=== PATIENT | female | born 1965 | race Caucasian/White ===

== ENCOUNTER 2017-08-06 16:02 | Emergency (ER) | payer SELFPAY ==
[~2017-08-06] VITALS: Ht 170.2 cm; Wt 110.0 kg
[~2017-08-06 16:02] MED LIST: CIPR500T4 PO; TRAM50 PO
[2017-08-06 16:09] VITALS: BP 127/59; PULSE 90; RESP 16; TEMP 98.6; O2SAT 97
--- NOTE | 2017-08-06 16:33 | PD ---
HPI Chief Complaint: Musculoskeletal Complaint Time Seen by Provider: 16:26 Travel History International Travel<30 days: No Contact w/Intl Traveler<30days: No Traveled to known affect area: No History of Present Illness HPI 51yo F with no significant PMH presents to the ED with c/o pain in back of right knee since yesterday. Pt denies any trauma, fall, fever, chest pain, sob , n/v, abdominal pain, focal weakness or numbness. Pt went to urgent care today and was sent here for US since they dont have US. PFSH Past Medical History Blood Disorders: No Depression: Yes Cancer: Yes (SKIN CANCER--BASAL CELL CARCINOMA) Cardiovascular Problems: No Chemotherapy: No Diabetes: No Diminished Hearing: No Endocrine: No Glaucoma: No Genitourinary: Yes Hepatitis: No Hiatal Hernia: No Hypertension: No Immune Disorder: No Kidney Stones: Yes (NEW ONSET) Musculoskeletal: No Neurologic: No Psychiatric: Yes Reproductive: No Respiratory: No Radiation Therapy: No Thyroid Disease: No ?: Not Past Surgical History Abdominal Surgery: No Cardiac Surgery: No Ear Surgery: No Endocrine Surgery: No Eye Surgery: No Genitourinary Surgery: No Gynecologic Surgery: Yes (HYSTERECTOMY) Hysterectomy: Yes Oral Surgery: No Pacemaker: No Thoracic Surgery: No Other Surgery: Yes (BASAL CELL CARCINOMA REMOVED 12/05/05) Social History Alcohol Use: No Tobacco Use: No Substance Use: No Allergies-Medications (Allergen,Severity, Reaction): Coded Allergies: No Known Allergies (Verified Adverse Reaction, Unknown, 08/06/17) Reported Meds & Prescriptions Reported Meds & Active Scripts Active No Active Prescriptions or Reported Medications Review of Systems Except as stated in HPI: all other systems reviewed are Neg Physical Exam Narrative GENERAL: 51yo F in mild distress. SKIN: Focused skin assessment warm/dry. HEAD: Atraumatic. Normocephalic. EYES: Pupils equal and round. No scleral icterus. No injection or drainage. ENT: No nasal bleeding or discharge. Mucous membranes pink and moist. NECK: Trachea midline. No JVD. CARDIOVASCULAR: Regular rate and rhythm. No murmur appreciated. RESPIRATORY: No accessory muscle use. Clear to auscultation. Breath sounds equal bilaterally. GASTROINTESTINAL: Abdomen soft, non-tender, nondistended. Hepatic and splenic margins not palpable. MUSCULOSKELETAL: RLE: FROM in right knee. No erythema, edema or ttp right knee joint. +TTP posterior lateral popliteal region. Sensation intact. Distal pulses intact. NEUROLOGICAL: Awake and alert. No obvious cranial nerve deficits. Motor grossly within normal limits. Normal speech. PSYCHIATRIC: Appropriate mood and affect; insight and judgment normal. Data Data Last Documented VS Vital Signs Date Time Temp Pulse Resp B/P (MAP) Pulse Ox O2 Delivery O2 Flow Rate FiO2 08/06/17 16:09 98.6 90 16 127/59 (81) 97 Orders Orders Us Leg Venous Doppler (08/06/17 ) Ketorolac Inj (Toradol Inj) (08/06/17 16:45) MDM Medical Decision Making Medical Screen Exam Complete: Yes Emergency Medical Condition: Yes Differential Diagnosis Musculoskeletal pain vs. Chow cyst vs. DVT Narrative Course 51yo well appearing female here with pain in right posterior knee region since yesterday. Pt has good range of motion in right knee with no pain in knee joint. US right lower extremity showed no DVT. Pt given toradol and reevaluated at bedside. Said pain has improved. Return precautions given. Diagnosis Primary Impression: Right leg pain Patient Instructions: General Instructions Departure Forms: Tests/Procedures Additional Instructions: Please follow up with [facility] as outpatient. Return to the ED if symptoms worsen. Med/Other Pt SpecificInfo: Prescription(s) given Scripts Ibuprofen (Ibuprofen) 600 Mg Tab 600 MG PO Q8HR Y for PAIN, #20 TAB 0 Refills Prov: NewberryArielle 08/06/17 Disposition: 01 DISCHARGE HOME Condition: Stable NewberryArielle DO Aug 06, 2017 16:33
[2017-08-06] MEDS ORDERED: KETOROLAC TROMETHAMINE 60 MG/2 ML (IM) VIAL IM ONE (16:45)
--- NOTE | 2017-08-06 17:56 | RADRPT ---
EXAM DATE/TIME: 08/06/2017 17:28 [facility] COMPARISON: No previous studies available for comparison. INDICATIONS : Right leg swelling. MEDICAL HISTORY : Glasses. Kidney stones. Urinary tract infection. Depression. Skin cancer. SURGICAL HISTORY : Hysterectomy. Right knee surgery. Basal cell carcinoma removed. ENCOUNTER: Initial ACUITY: 2 day PAIN SCORE: 3/10 LOCATION: Right leg. TECHNIQUE: Venous ultrasound of the leg was performed from the inguinal ligament to the proximal calf. Real-sara e, color Doppler and spectral tracing, compression and augmentation techniques were used. FINDINGS: There is normal compressibility of the deep venous system from the inguinal region to the proximal ca lf. No echogenic clot is seen in the lumen of the common femoral, femoral, popliteal, and posterior tibial veins. There is a normal response of the venous system to proximal and distal augmentation an d respiration. CONCLUSION: Negative exam. No sonographic or Doppler findings of deep venous thrombosis. Cal Ogden MD on August 06, 2017 at 17:52 Board Certified Radiologist. This report was verified electronically.
[2017-08-06] MEDS ORDERED: IBUP-232 PO (18:10)
== END 2017-08-06 18:22 | disposition home or self-care (01) ==
LOC: PHED 16:02
DX: M79.604 Pain in right leg (principal); F32.9 Major depressive disorder, single episode, unspecified; Z85.828 Personal history of other malignant neoplasm of skin; Z87.442 Personal history of urinary calculi
CPT/HCPCS: 93971; 96372; 99283; J1885